=== PATIENT | male | born 1985 | race Caucasian/White ===

== ENCOUNTER 2024-09-05 13:10 | Emergency (ER) | payer OTHER, SELFPAY ==
[2024-09-05 13:18] VITALS: BP 135/85; PULSE 87; RESP 20; TEMP 36.9; O2SAT 100
--- NOTE | 2024-09-05 13:20 | ED.EXTPRO ---
HPI - Extremity Problem General Chief complaint: Extremity Injury, Upper Stated complaint: Swollen pinkys on both hands Time Seen by Provider: 09/05/24 13:15 Source: patient Mode of arrival: ambulatory Limitations: no limitations History of Present Illness HPI Narrative: Broderick is a 38-year-old male patient presenting to the clinic today with complaints of with bilateral pinky swelling. Symptoms have been going on for approximately 1 year. 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 He reports he has been taking ibuprofen for pain and swelling. Feels as though the right 5th finger is more swollen than the left 5th finger. Pain radiates up into the wrist. Related Data Home Medications ?Medication ?Instructions ?Recorded ?Confirmed ?Last Taken ?Type No Home Medications 09/05/24 09/05/24 Unknown History Allergies Allergy/AdvReac Type Severity Reaction Status Date / Time No Known Allergies Allergy Verified 09/05/24 13:33 Review of Systems Review of Systems: Pertinent positives per HPI. Patient denies any fever, chills, rash, headache, visual changes, dizziness, cough, runny nose, sore throat, shortness of breath, chest pain, palpitations, nausea, vomiting, diarrhea, constipation, abdominal pain, or any urinary issues. PMFSH Comments At the time of my signature, I reviewed and agree with the nursing past medical, surgical, social, and family history. There is no relevant family history pertinent to the patient complaint. Exam Narrative: General: Well-developed, well nourished, in no apparent distress Head: Normocephalic, atraumatic. Cardio: Regular rate and rhythm, s1 and s2 normal, no murmur appreciated. Resp: Clear to auscultation bilaterally, no rhonchi, rales, wheezing or rubs. Musculoskeletal: No deformity, negative bilateral wrist and elbow Tinel's, positive Phalen's, tender to palpation over the right and left 5th finger D IP and P IP joints worse on the right, mildly limited range of motion with flexion extension of the right 5th finger, muscle strength strong and equal, peripheral pulse strong, no edema, no cyanosis, normal gait and station Course Course Emergency Course: Portions of this record may have been created with voice recognition software. Level of Care: Express Care Visit Vital Signs Vital signs: Vital Signs Temperature 36.9 C 09/05/24 13:18 Pulse Rate 87 09/05/24 13:18 Respiratory Rate 20 09/05/24 13:18 Blood Pressure 135/85 09/05/24 13:18 Pulse Oximetry 100 09/05/24 13:18 Oxygen Delivery Room Air 09/05/24 13:18 Temperature 36.9 C 09/05/24 13:18 Pulse Rate 87 09/05/24 13:18 Respiratory Rate 20 09/05/24 13:18 Blood Pressure 135/85 09/05/24 13:18 Pulse Oximetry 100 09/05/24 13:18 Oxygen Delivery Room Air 09/05/24 13:18 Vital signs reviewed MDM - Extremity (Nontraumatic) MDM Narrative Medical decision making narrative: At the time of visit patient is resting comfortably on the exam table. Patient appears to be nontoxic. Plan: I suspect patient has localized finger swelling and bilateral hands. Patient has positive Phalen's but negative Tinel's. Will send in prescription for Medrol Dosepak and have the patient follow-up for further evaluation. Offered x-ray in the clinic today however told patient that this would not change our treatment plan. Patient declined to have x-rays done at this time. Supportive measures were discussed with the patient and they voiced understanding discharge instructions and agrees to treatment plan. Return precautions reviewed Differential Diagnosis Differential diagnosis: Likely gout, cellulitis and other (Osteoarthritis) Discharge Plan Discharge Clinical Impression: Localized swelling of finger of both hands Patient Disposition: Home Condition: Stable Instructions: Antibiotic Form, Swollen Joint (ED) Additional Instructions: Offered x-rays in the clinic today Rest, ice, and elevate Take Medrol Dosepak as prescribed Follow-up with your primary care doctor in 1 week Patient Language: Slovak Prescriptions: No Action No Home Medications Follow-up/Referrals: Stewart Galarza MD [Primary Care Provider] - Time of Disposition: 13:37 Quality NIHSS Nursing Documentation ED NIHSS nursing documentation: reviewed/agree
--- OUTSIDE RECORDS SUMMARY | 2024-09-05 13:40 | XMS_ITS | Clinical Summary ---
Author Organization [facility] Address [address] [place] [address] Phone Care Team Providers [facility] [employer] Name Role Phone Cristi Medina MD Primary Care Provider [phone] Allergies No known active allergies Medications fluticasone (FLOVENT HFA) 110 MCG/ACT IN AEROIndications :Reactive airway disease take 2 Puffs by inhalation 2 times daily. 1 Inhaler 3 2 Active Additional Information Patient not taking.Reported on 02/10/2019 Ascorbic Acid (VITAMIN C PO) Take by mouth. Active sertraline (ZOLOFT) 50 MG PO TABSIndications :Depression Take 1 Tab by mouth daily. 1/2 tab for 6 days, then 1 daily. 30 Tab 1 3 Active Additional Information Patient not taking.Reported on 02/10/2019 Meloxicam (MOBIC) 15 MG PO TABS Take 15 mg by mouth daily. Active IRON PO Take by mouth daily. Active Probiotic Product (PROBIOTIC DAILY PO) Take by mouth daily. Active albuterol 108 (90 BASE) MCG/ACT IN AERSIndications :Bronchitis take 2 Puffs by inhalation every 4 hours as needed for Wheezing or Cough (shortness of breath). 1 Inhaler 0 4 Active ibuprofen (MOTRIN) 800 MG Tablet Take 1 Tab by mouth every 8 hours as needed for Mild or more severe pain. 30 Tab 9 Active orphenadrine (NORFLEX) 100 MG TABLET SR 12 HR Take 1 Tab by mouth 2 times daily as needed for Muscle spasms. 20 Tab 9 Active Additional Information Patient not taking.Reported on 02/10/2019 HYDROcodone-noris taminophen (NORCO) 5-325 MG Tablet Take 1 Tab by mouth every 6 hours as needed for Moderate or more severe pain. 20 Tab 9 Active Additional Information Patient not taking.Reported on 02/10/2019 mupirocin (BACTROBAN) 2 % OintmentIndicat ions:Cracked skin on feet Apply thin film to affected areas daily until healed. 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[employer] Gender Identity Not on file Sexual Orientation Not on file Last Filed Vital Signs Vital Sign Reading Time Taken Comments Blood Pressure 130/78 02/10/2019 1:23 PM CDT Pulse 98 02/10/2019 1:23 PM CDT Temperature 36.6 C (97.8 F) 02/10/2019 1:23 PM CDT Respiratory Rate 18 02/10/2019 1:23 PM CDT Oxygen Saturation 98% 02/10/2019 1:23 PM CDT Inhaled Oxygen Concentration - - Weight 108.9 kg (240 lb) 02/10/2019 1:23 PM CDT Height 167.6 cm (5' 6 ) 05/26/2018 3:07 PM [employer]ING [employer] Body Mass Index 38.74 05/26/2018 3:07 PM [employer] Plan of Treatment Health Maintenance Due Date Last Done Comments Hepatitis C Virus (HCV) Screening 1985 TdaP Immunization 1985 Influenza Immunization (#1) 2023 SARS-COV-2 Immunization ( season) 2023 Respiratory Syncytial Virus (RSV) Immunization (Adult) (1 - 1-dose 75+ series) 2060 DTaP/Tdap/Td Immunization Discontinued 1991, 12/15/1990, 08/10/1989 Hepatitis B Immunization Completed 999, 03/29/1998, 02/06/1998 Meningococcal Immunization (ACWY) Aged Out No longer eligible based on patient's age to complete this topic Pneumococcal Immunization Combined Aged Out No longer eligible based on patient's age to complete this topic Rotavirus Immunization Aged Out No lo nger eligible based on patient's age to complete this topic Care Teams [employer] Relationship Specialty Start Date End Date Cristi Medina MD [address] [place] [address] PCP - General Family Medicine 02/05/16
== END 2024-09-05 13:40 | disposition home or self-care (01) ==
PROVIDERS: Emergency Provider Nurse Practitioner Family; PCP Internal Medicine
DX: R22.33 Localized swelling, mass and lump, upper limb, bilateral (principal)
CPT/HCPCS: 99202; G0463